=== PATIENT | female | born 1970 | race Caucasian/White ===

== ENCOUNTER 2017-07-22 08:36 | Day surgery (SDC) | payer BC ==
[~2017-07-22] VITALS: Ht 167.6 cm; Wt 147.0 kg
[2017-07-22] MEDS ORDERED: MORPHINE 2 MG/ML INJ. SYRINGE IVP PRN ×3 (11:30)
[2017-07-22] MEDS ORDERED: METOCLOPRAMIDE HCL 10 MG/2 ML VIAL IVP PRN (11:30)
[2017-07-22] MEDS ORDERED: LR 1,000 ML IV SCH (11:30)
[2017-07-22 13:36] VITALS: BP_SYST 130
== END 2017-07-22 14:30 | disposition home or self-care (01) ==
LOC: SDS 08:36
PROVIDERS: ATTEND Otolaryngology
DX: J35.01 Chronic tonsillitis (principal); Z88.0 Allergy status to penicillin; Z98.890 Other specified postprocedural states; Z79.899 Other long term (current) drug therapy; Z90.10 Acquired absence of unspecified breast and nipple; E11.9 Type 2 diabetes mellitus without complications; Z83.3 Family history of diabetes mellitus; K21.9 Gastro-esophageal reflux disease without esophagitis; Z68.43 Body mass index [BMI] 50.0-59.9, adult; I10 Essential (primary) hypertension; M19.90 Unspecified osteoarthritis, unspecified site; E66.01 Morbid (severe) obesity due to excess calories; Z90.710 Acquired absence of both cervix and uterus; Z82.49 Family history of ischemic heart disease and other diseases of the circulatory system; Z80.0 Family history of malignant neoplasm of digestive organs; Z82.0 Family history of epilepsy and other diseases of the nervous system
CPT/HCPCS: 42826; 88304; J7120